=== PATIENT | female | born 1970 | race Caucasian/White ===

== ENCOUNTER 2017-05-15 13:28 | Emergency (ER) | payer SELFPAY ==
[2017-05-15] MEDS ORDERED: cloNIDine 0.1 MG Tab PO ONE (14:28)
[2017-05-15 15:46] VITALS: BP 204/126
--- NOTE | 2017-05-15 15:56 | EDM.PDOC ---
ED HPI GENERAL MEDICAL PROBLEM - General Chief Complaint: Neurological Problem Stated Complaint: AMBULANCE Time Seen by Provider: 05/15/17 14:18 Source of Information: Reports: Patient History Limitations: Reports: No Limitations - History of Present Illness INITIAL COMMENTS - FREE TEXT/NARRATIVE: History of present illness: []EMS brought in patient with a history of her roommate apparently witnessing a seizure. On EMS arrival she was found outside hiding behind a liu and uncooperative. They did not witness any seizure activity. Patient arrived complaining of a severe headache and was hypertensive. 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 She also had a similar episode years ago where she stopped her clonidine suddenly, however patient states that she remembers taking her clonidine last night. Review of systems: As per history of present illness and below otherwise all systems reviewed and negative. Past medical history: As per history of present illness and as reviewed below otherwise noncontributory. Surgical history: As per history of present illness and as reviewed below otherwise noncontributory. Social history: No reported history of drug or alcohol abuse. Family history: As per history of present illness and as reviewed below otherwise noncontributory. Physical exam: General: Well developed, well nourished in mild painful distress, HEENT: Atraumatic, normocephalic, pupils reactive, negative for conjunctival pallor or scleral icterus, mucous membranes moist, throat clear, neck supple, nontender, trachea midline. Lungs: Clear to auscultation, breath sounds equal bilaterally, chest nontender. Heart: S1S2, regular, negative for clicks, rubs, or JVD. Abdomen: Soft, nondistended, nontender. Negative for masses or hepatosplenomegaly. Negative for costovertebral tenderness. Pelvis: Stable nontender. Genitourinary: Deferred. Rectal: Deferred. Extremities: Atraumatic, negative for cords or calf pain. Neurovascular unremarkable. Neuro: Awake, alert, oriented. Cranial nerves II through XII unremarkable. Cerebellum unremarkable. Motor and sensory unremarkable throughout. Exam nonfocal. Diagnostics: []CT head negative, Therapeutics: []clonidine ordered, patient took her own out of her purse. Impression: []Hypertensive emergency. Patient refused to stay and is signing out AGAINST MEDICAL ADVICE. Her blood pressure is 280/125. Patient continues to have a headache. Patient is alert and oriented and understands that there is risk of immediate she leans with this blood pressure. Patient insists on signing out AMA because she is supposed to be moving at this time. []Follow-up with PMD Definitive disposition and diagnosis as appropriate pending reevaluation and review of above. head Pain Score (Numeric/FACES): 8 - Related Data Allergies Allergy/AdvReac Type Severity Reaction Status Date / Time No Known Allergies Allergy Verified 05/15/17 14:20 Home Meds: Home Meds clonazePAM [Klonopin] 0.5 mg PO PRN 11/09/16 [History] cloNIDine [Catapres] 0.4 mg PO TID #90 tablet 11/10/16 [Rx] cloNIDine [Catapres] 0.2 mg PO Q8H #20 tablet 05/15/17 [Rx] Past Medical History HEENT History: Reports: None Cardiovascular History: Reports: Hypertension Respiratory History: Reports: None Gastrointestinal History: Reports: None Genitourinary History: Reports: Other (See Below) Other Genitourinary History: vaginal cancer 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: , 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 (See Below) Other OB/BYN History: Multiple vaginal surgeries for vaginal cancer Musculoskeletal History: Reports: None Neurological History: Reports: Migraines, Seizure Psychiatric History: Reports: Anxiety Endocrine/Metabolic History: Reports: None Hematologic History: Reports: None Immunologic History: Reports: None Oncologic (Cancer) History: Reports: Other (See Below) Other Oncologic History: vaginal ca Dermatologic History: Reports: None - Infectious Disease History Infectious Disease History: Reports: Chicken Pox, Influenza - Past Surgical History GI Surgical History: Reports: Other (See Below) Oncologic Surgical History: Reports: Other (See Below) Social & Family History - Family History Family Medical History: Noncontributory Cardiac: Reports: Hypertension, Other (See Below) Other Cardiac Family History: "cardiac disease" OBGYN: Reports: Neurological: Reports: Dementia Oncologic: Reports: Breast, Pancreatic, Skin Other Oncologic Family History: sister - Tobacco Use Smoking Status *Q: Current Every Day Smoker Years of Tobacco use: 15 Packs/Tins Daily: 1 Used Tobacco, but Quit: No Second Hand Smoke Exposure: Yes - Caffeine Use Caffeine Use: Reports: Coffee, Soda - Recreational Drug Use Recreational Drug Use: Yes Drug Use in Last 12 Months: No ED ROS GENERAL - Review of Systems Review Of Systems: See Below (See history of present illness) - Physical Exam Exam: See Below (See history of present illness) Course - Vital Signs Last Recorded V/S: Last Vital Signs Temp 35.9 C 05/15/17 13:28 Pulse 94 05/15/17 13:28 Resp 20 05/15/17 13:28 BP 204/126 H 05/15/17 15:45 Pulse Ox 100 05/15/17 13:28 - Orders/Labs/Meds Orders: Active Orders 24 hr Category Date Time Status Head wo Cont [CT] Stat Exams 05/15/17 14:28 Taken DRUG SCREEN, URINE [URCHEM] Stat Lab 05/15/17 16:28 Ordered Saline Lock Insert [OM.PC] Stat Oth 05/15/17 14:28 Ordered Labs: Laboratory Tests 05/15/17 Range/Units 14:50 Ethyl Alcohol < 10.0 mg/dL Meds: Medications Discontinued Medications Generic Name Dose Route Start Last Admin Trade Name Ji PRN Reason Stop Dose Admin Clonidine HCl 0.2 mg 05/15/17 14:28 05/15/17 15:45 Catapres PO 05/15/17 14:29 Not Given ONETIME ONE Departure - Departure Time of Disposition: 15:40 Disposition: Against Medical Advice 07 Condition: Good Clinical Impression: Hypertensive urgency - Discharge Information Prescriptions: cloNIDine [Catapres] 0.2 mg PO Q8H #20 tablet Referrals: PCP,None [Primary Care Provider] - Forms: ED Department Discharge Additional Instructions: The following information is given to patients seen in the emergency department who are being discharged to home. This information is to outline your options for follow-up care. We provide all patients seen in our emergency department with a follow-up referral. The need for follow-up, as well as the timing and circumstances, are variable depending upon the specifics of your emergency department visit. If you don't have a primary care physician on staff, we will provide you with a referral. We always advise you to contact your personal physician following an emergency department visit to inform them of the circumstance of the visit and for follow-up with them and/or the need for any referrals to a consulting specialist. The emergency department will also refer you to a specialist when appropriate. This referral assures that you have the opportunity for follow-up care with a specialist. All of these measure are taken in an effort to provide you with optimal care, which includes your follow-up. Under all circumstances we always encourage you to contact your private physician who remains a resource for coordinating your care. When calling for follow-up care, please make the office aware that this follow-up is from your recent emergency room visit. If for any reason you are refused follow-up, please contact the [facility] Emergency Department at and asked to speak to the emergency department charge nurse. Pickup her clonidine prescription and take them as directed [facility] Primary Care [facility] [place] [id number] - My Orders Last 24 Hours: My Active Orders 05/15/17 14:28 Head wo Cont [CT] Stat Saline Lock Insert [OM.PC] Stat 05/15/17 16:28 DRUG SCREEN, URINE [URCHEM] Stat - Assessment/Plan Last 24 Hours: My Active Orders 05/15/17 14:28 Head wo Cont [CT] Stat Saline Lock Insert [OM.PC] Stat 05/15/17 16:28 DRUG SCREEN, URINE [URCHEM] Stat
--- NOTE | 2017-05-17 13:27 | CT ---
EXAM DATE: 05/15/17 PATIENT'S AGE: 46 Patient: VIOLET NIELSEN Facility: [place], [place] Site . Site : 1970 Study: CT Head WO CONT [id number] 3:04:27 PM Ordering Physician: Doroteo Douglas Final Report: Indication: Seizure. Comparison: 09 November 2016. Technique: Noncontrast images foramen magnum to vertex at 3 mm collimation. Findings: No mass, mass effect or midline shift. No intra or extra-axial hemorrhage or abnormal fluid. Stippled coarse calcifications in the central occiput bilaterally, stable from before and potentially choroid plexus related or other chronic dystrophic calcification related. No associated mass effect. Calvarium is intact. Visualized paranasal sinuses, orbits and globes and mastoid air cells and middle ears are well aerated. Impression: No acute intracranial finding. No change for comparison. Dystrophic calcifications bilateral occiput likely choroid plexus related. Please note that all CT scans at this facility use dose modulation, iterative reconstruction, and/or weight-based dosing when appropriate to reduce radiation dose to as low as reasonably achievable. Dictated by Jacob Madsen MD @ May 15 2017 3:08PM (Electronic Signature) Report Signed by Proxy. MANNIE
== END 2017-05-15 15:46 | disposition left against medical advice (07) ==
LOC: MW.ED 13:28
DX: I16.0 Hypertensive urgency (principal); G43.909 Migraine, unspecified, not intractable, without status migrainosus; F17.210 Nicotine dependence, cigarettes, uncomplicated
CPT/HCPCS: 36415; 70450; 99285; G0480; 99282

== ENCOUNTER 2017-07-05 10:25 | Emergency (ER) | payer SELFPAY ==
[2017-07-05] MEDS ORDERED: Sodium Chloride 0.9% 10 ML Syringe FLUSH PRN (10:27)
[2017-07-05] MEDS ORDERED: Sodium Chloride 0.9% 1,000 ML IV ONE (10:27)
[2017-07-05] MEDS ORDERED: Sodium Chloride 0.9% 2.5 ML Syringe FLUSH PRN (10:27)
--- NOTE | 2017-07-05 10:34 | EDM.PDOC ---
ED HPI GENERAL MEDICAL PROBLEM - General Stated Complaint: AMBULANCE Time Seen by Provider: 07/05/17 10:28 Source of Information: Reports: Patient History Limitations: Reports: No Limitations - History of Present Illness INITIAL COMMENTS - FREE TEXT/NARRATIVE: HISTORY AND PHYSICAL: History of present illness: Patient is a 46-year-old female that was brought to the emergency room via EMS after a coworker reported that she took too many of her clonidine. 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 She states she started having tunnel vision and having difficulty seeing which is common with her high blood pressure. Over the course of the next 3 hours she took 6 tablets of her clonidine dose. An employee noticed her speech is becoming that appeared to be drowsy. Upon arrival patient is alert and oriented and speaking in full sentences but does have thickened speech. She denies any drug use or alcohol use. Denies any chest pain, shortness of breath, headache, nausea, vomiting or diarrhea. Patient reports that her main reason for being seen right now due to the high blood pressure concern and feeling slightly drowsy from her medication use. Patient has a past medical history of anxiety, hypertension, and hypertension urgency. Review of systems: As per history of present illness and below otherwise all systems reviewed and negative. Past medical history: As per history of present illness and as reviewed below otherwise noncontributory. Surgical history: As per history of present illness and as reviewed below otherwise noncontributory. Social history: No reported history of drug or alcohol abuse. Family history: As per history of present illness and as reviewed below otherwise noncontributory. Physical exam: General: Nontoxic, well-developed, well-nourished 46-year-old female. Able to speak in full sentences without shortness of breath. Thickened speech is noted. HEENT: Atraumatic, normocephalic, pupils reactive, negative for conjunctival pallor or scleral icterus, mucous membranes moist, throat clear, neck supple, nontender, trachea midline. Lungs: Clear to auscultation, breath sounds equal bilaterally, chest nontender. Heart: S1S2, regular rate and rhythm. Abdomen: Soft, nondistended, nontender. Negative for masses or hepatosplenomegaly. Negative for costovertebral tenderness. Pelvis: Stable nontender. Genitourinary: Deferred. Rectal: Deferred. Extremities: Atraumatic, negative for cords or calf pain. Neurovascular unremarkable. Neuro: Awake, alert, oriented. Cranial nerves II through XII unremarkable. Cerebellum unremarkable. Motor and sensory unremarkable throughout. Exam nonfocal. 1035- upon completion of triage and providers physical assessment and orders were placed, patient reports she wants to leave AGAINST MEDICAL ADVICE. Patient is awake, alert and oriented and able to make competent decisions. Patient is aware of my concerns and declines to stay for future evaluation. Reports that she needs to get back to work and will follow-up with Dr. Carpio at [facility]. Patient signed AMA paperwork. 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: , 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 (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) Other OB/BYN History: Multiple vaginal surgeries for vaginal cancer Musculoskeletal History: Reports: None Neurological History: Reports: Migraines, Seizure Psychiatric History: Reports: Anxiety Endocrine/Metabolic History: Reports: None Hematologic History: Reports: None Immunologic History: Reports: None Oncologic (Cancer) History: Reports: Other (See Below) Other Oncologic History: vaginal ca Dermatologic History: Reports: None - Infectious Disease History Infectious Disease History: Reports: Chicken Pox, Influenza - Past Surgical History GI Surgical History: Reports: Other (See Below) Oncologic Surgical History: Reports: Other (See Below) Social & Family History - Family History Family Medical History: Noncontributory Cardiac: Reports: Hypertension, Other (See Below) Other Cardiac Family History: "cardiac disease" OBGYN: Reports: Neurological: Reports: Dementia Oncologic: Reports: Breast, Pancreatic, Skin Other Oncologic Family History: sister - Tobacco Use Smoking Status *Q: Current Every Day Smoker Years of Tobacco use: 15 Packs/Tins Daily: 1 Used Tobacco, but Quit: No Second Hand Smoke Exposure: Yes - Caffeine Use Caffeine Use: Reports: Coffee, Soda - Recreational Drug Use Recreational Drug Use: Yes Drug Use in Last 12 Months: No ED ROS GENERAL - Review of Systems Review Of Systems: ROS reveals no pertinent complaints other than HPI. ED EXAM, GENERAL - Physical Exam Exam: See Below (See dictation) Course - Orders/Labs/Meds Orders: Active Orders 24 hr Category Date Time Status Cardiac Monitoring [RC] . DIRECTED Care 07/05/17 10:27 Active EKG Documentation Completion [RC] STAT Care 07/05/17 10:27 Active CBC WITH AUTO DIFF [HEME] Stat Lab 07/05/17 10:27 Ordered COMPREHENSIVE METABOLIC PN,CMP [CHEM] Stat Lab 07/05/17 10:27 Ordered DRUG SCREEN, URINE [URCHEM] Stat Lab 07/05/17 10:34 Uncollected TROPONIN I [CHEM] Stat Lab 07/05/17 10:27 Ordered UA W/MICROSCOPIC [URIN] Stat Lab 07/05/17 10:34 Uncollected Sodium Chloride 0.9% [Normal Saline] 1,000 ml Med 07/05/17 10:27 Active IV STAT Sodium Chloride 0.9% [Saline Flush] Med 07/05/17 10:27 Active 10 ml FLUSH ASDIRECTED PRN Sodium Chloride 0.9% [Saline Flush] Med 07/05/17 10:27 Active 2.5 ml FLUSH ASDIRECTED PRN Saline Lock Insert [OM.PC] Stat Oth 07/05/17 10:27 Ordered Medication Orders Sodium Chloride (Normal Saline) 1,000 mls @ 999 mls/hr IV STAT ONE Stop: 07/05/17 11:27 Sodium Chloride (Saline Flush) 10 ml FLUSH ASDIRECTED PRN PRN Reason: Keep Vein Open Sodium Chloride (Saline Flush) 2.5 ml FLUSH ASDIRECTED PRN PRN Reason: Keep Vein Open Meds: Medications Generic Name Dose Route Start Last Admin Trade Name Freq PRN Reason Stop Dose Admin Sodium Chloride 1,000 mls @ 999 mls/hr 07/05/17 10:27 Normal Saline IV 07/05/17 11:27 STAT ONE Sodium Chloride 10 ml 07/05/17 10:27 Saline Flush FLUSH ASDIRECTED PRN Keep Vein Open Sodium Chloride 2.5 ml 07/05/17 10:27 Saline Flush FLUSH ASDIRECTED PRN Keep Vein Open Departure - Departure Time of Disposition: 10:40 Disposition: Against Medical Advice 07 Clinical Impression: Encounter for medical screening examination - Discharge Information Forms: Refusal of Care AMA - My Orders Last 24 Hours: My Active Orders 07/05/17 10:27 Cardiac Monitoring [RC] . DIRECTED EKG Documentation Completion [RC] STAT CBC WITH AUTO DIFF [HEME] Stat COMPREHENSIVE METABOLIC PN,CMP [CHEM] Stat TROPONIN I [CHEM] Stat Sodium Chloride 0.9% [Normal Saline] 1,000 ml IV STAT Sodium Chloride 0.9% [Saline Flush] 10 ml FLUSH ASDIRECTED PRN Sodium Chloride 0.9% [Saline Flush] 2.5 ml FLUSH ASDIRECTED PRN Saline Lock Insert [OM.PC] Stat 07/05/17 10:34 DRUG SCREEN, URINE [URCHEM] Stat UA W/MICROSCOPIC [URIN] Stat - Assessment/Plan Last 24 Hours: My Active Orders 07/05/17 10:27 Cardiac Monitoring [RC] . DIRECTED EKG Documentation Completion [RC] STAT CBC WITH AUTO DIFF [HEME] Stat COMPREHENSIVE METABOLIC PN,CMP [CHEM] Stat TROPONIN I [CHEM] Stat Sodium Chloride 0.9% [Normal Saline] 1,000 ml IV STAT Sodium Chloride 0.9% [Saline Flush] 10 ml FLUSH ASDIRECTED PRN Sodium Chloride 0.9% [Saline Flush] 2.5 ml FLUSH ASDIRECTED PRN Saline Lock Insert [OM.PC] Stat 07/05/17 10:34 DRUG SCREEN, URINE [URCHEM] Stat UA W/MICROSCOPIC [URIN] Stat
[2017-07-05 10:47] VITALS: BP 156/95
== END 2017-07-05 10:40 | disposition left against medical advice (07) ==
LOC: MW.ED 10:25
DX: I10 Essential (primary) hypertension (principal); F41.9 Anxiety disorder, unspecified; F17.210 Nicotine dependence, cigarettes, uncomplicated
CPT/HCPCS: 99283; 99284

== ENCOUNTER 2018-01-22 21:06 | Emergency (ER) | payer SELFPAY ==
--- NOTE | 2018-01-22 21:20 | EDM.PDOC ---
ED HPI GENERAL MEDICAL PROBLEM - General Chief Complaint: Genitourinary Problem Stated Complaint: POSSIBLE UTI Time Seen by Provider: 01/22/18 21:16 - History of Present Illness INITIAL COMMENTS - FREE TEXT/NARRATIVE: HISTORY AND PHYSICAL: History of present illness: Patient 47-year-old white female presents with concern of dysuria with blood in her urine frequency and hesitancy consistent with prior urinary tract infections she denies fever chills nausea vomiting back pain or other concern Review of systems: As per history of present illness and below otherwise all systems reviewed and negative. Past medical history: As per history of present illness and as reviewed below otherwise noncontributory. Surgical history: As per history of present illness and as reviewed below otherwise noncontributory. Social history: No reported history of drug or alcohol abuse. Family history: As per history of present illness and as reviewed below otherwise noncontributory. Physical exam: HEENT: Atraumatic, normocephalic, pupils reactive, negative for conjunctival pallor or scleral icterus, mucous membranes moist, throat clear, neck supple, nontender, trachea midline. Lungs: Clear to auscultation, breath sounds equal bilaterally, chest nontender. Heart: S1S2, regular, negative for clicks, rubs, or JVD. Abdomen: Soft, nondistended, nontender. Negative for masses or hepatosplenomegaly. Negative for costovertebral tenderness. Pelvis: Stable nontender. Genitourinary: Deferred. Rectal: Deferred. Extremities: Atraumatic, negative for cords or calf pain. Neurovascular unremarkable. Neuro: Awake, alert, oriented. Cranial nerves II through XII unremarkable. Cerebellum unremarkable. Motor and sensory unremarkable throughout. Exam nonfocal. Diagnostics: Patient declined all treatment laboratory evaluation with the exception of UA and urine culture Therapeutics: Patient declined Impression: 1 UTI #2 history of hypertension with medical noncompliance Definitive disposition and diagnosis as appropriate pending reevaluation and review of above. painful urination Pain Score (Numeric/FACES): 6 - Related Data Allergies Allergy/AdvReac Type Severity Reaction Status Date / Time No Known Allergies Allergy Verified 01/22/18 21:10 Home Meds: Home Meds clonazePAM [Klonopin] 0.5 mg PO ASDIRECTED PRN 11/09/16 [History] cloNIDine [Catapres] 0.2 mg PO Q8H #20 tablet 05/15/17 [Rx] Past Medical History HEENT History: Reports: None Cardiovascular History: Reports: Hypertension Respiratory History: Reports: None Gastrointestinal History: Reports: None Genitourinary History: Reports: UTI, Recurrent Other Genitourinary History: HPV [employer] History: Reports: , Other (See Below) Other OB/BYN History: Multiple vaginal surgeries for vaginal cancer Musculoskeletal History: Reports: None Neurological History: Reports: Migraines, Seizure Psychiatric History: Reports: Anxiety Endocrine/Metabolic History: Reports: None Hematologic History: Reports: None Immunologic History: Reports: None Oncologic (Cancer) History: Reports: Other (See Below) Other Oncologic History: vaginal ca Dermatologic History: Reports: None - Infectious Disease History Infectious Disease History: Reports: Chicken Pox, Human Papilloma Virus (HPV) - Past Surgical History Head Surgeries/Procedures: Reports: None GI Surgical History: Reports: Other (See Below) Oncologic Surgical History: Reports: Other (See Below) Social & Family History - Family History Family Medical History: Noncontributory Cardiac: Reports: Hypertension, Other (See Below) Other Cardiac Family History: "cardiac disease" OBGYN: Reports: Neurological: Reports: Dementia Oncologic: Reports: Breast, Pancreatic, Skin Other Oncologic Family History: sister - Tobacco Use Smoking Status *Q: Current Every Day Smoker Years of Tobacco use: 20 Packs/Tins Daily: 1 Used Tobacco, but Quit: No Second Hand Smoke Exposure: Yes - Caffeine Use Caffeine Use: Reports: Soda - Recreational Drug Use Recreational Drug Use: No Drug Use in Last 12 Months: No ED ROS GENERAL - Review of Systems Review Of Systems: ROS reveals no pertinent complaints other than HPI. ED EXAM, GENERAL - Physical Exam Exam: See Below (See dictation) Course - Vital Signs Text/Narrative:: I discussed with patient at length her elevated blood pressure and the need for medical compliance she understands risks and benefits she declines any diagnostics or further treatment she states she will take her medicine as prescribed and follow-up with her doctor closely and return as needed as discussed. Last Recorded V/S: Last Vital Signs Temp 36.3 C 01/22/18 21:10 Pulse 98 01/22/18 21:10 Resp 18 01/22/18 21:10 BP 208/112 H 01/22/18 21:37 Pulse Ox 97 01/22/18 21:10 - Orders/Labs/Meds Orders: Active Orders 24 hr Category Date Time Status EKG Documentation Completion [RC] STAT Care 01/22/18 21:21 Active Chest 1V Frontal [CR] Stat Exams 01/22/18 21:21 Ordered CULTURE URINE [RM] Stat Lab 01/22/18 21:15 Received UA W/MICROSCOPIC [URIN] Stat Lab 01/22/18 21:15 Ordered Sodium Chloride 0.9% [Saline Flush] Med 01/22/18 21:22 Active 10 ml FLUSH ASDIRECTED PRN Sodium Chloride 0.9% [Saline Flush] Med 01/22/18 21:22 Active 2.5 ml FLUSH ASDIRECTED PRN Saline Lock Insert [OM.PC] Stat Oth 01/22/18 21:21 Ordered Medication Orders Sodium Chloride (Saline Flush) 10 ml FLUSH ASDIRECTED PRN PRN Reason: Keep Vein Open Sodium Chloride (Saline Flush) 2.5 ml FLUSH ASDIRECTED PRN PRN Reason: Keep Vein Open Labs: Laboratory Tests 01/22/18 Range/Units 21:15 Urine Color ORANGE Urine Appearance SLT CLOUDY Urine pH 5.0 (5.0-8.0) Ur Specific [place] >= 1.030 (1.001-1.035) Urine Protein 100 (NEGATIVE) mg/dL Urine Glucose (UA) 100 H (NEGATIVE) mg/dL Urine Ketones NEGATIVE (NEGATIVE) mg/dL Urine Occult Blood TRACE-LYSED (NEGATIVE) Urine Nitrite POSITIVE H (NEGATIVE) Urine Bilirubin SMALL H (NEGATIVE) Urine Ictotest POSITIVE Urine Urobilinogen 4.0 H (<2.0) EU/dL Ur Leukocyte Esterase MODERATE (NEGATIVE) Urine RBC 1-2 (0-2/HPF) Urine WBC TO NUMEROUS TO COUNT H (0-5/HPF) Ur Epithelial Cells FEW (NONE-FEW) Urine Bacteria FEW (NEGATIVE) Meds: Medications Generic Name Dose Route Start Last Admin Trade Name Freq PRN Reason Stop Dose Admin Sodium Chloride 10 ml 01/22/18 21:22 Saline Flush FLUSH ASDIRECTED PRN Keep Vein Open Sodium Chloride 2.5 ml 01/22/18 21:22 Saline Flush FLUSH ASDIRECTED PRN Keep Vein Open Discontinued Medications Generic Name Dose Route Start Last Admin Trade Name Freq PRN Reason Stop Dose Admin Hydralazine HCl 10 mg 01/22/18 21:22 Apresoline IVPUSH 01/22/18 21:23 ONETIME ONE Departure - Departure Time of Disposition: 21:20 Disposition: Home, Self-Care 01 Clinical Impression: UTI (urinary tract infection), Hypertension, Medical non-compliance - Discharge Information Referrals: Ronny Sánchez MD [Primary Care Provider] - Forms: ED Department Discharge Additional Instructions: The following information is given to patients seen in the emergency department who are being discharged to home. This information is to outline your options for follow-up care. We provide all patients seen in our emergency department with a follow-up referral. The need for follow-up, as well as the timing and circumstances, are variable depending upon the specifics of your emergency department visit. If you don't have a primary care physician on staff, we will provide you with a referral. We always advise you to contact your personal physician following an emergency department visit to inform them of the circumstance of the visit and for follow-up with them and/or the need for any referrals to a consulting specialist. The emergency department will also refer you to a specialist when appropriate. This referral assures that you have the opportunity for followup care with a specialist. All of these measure are taken in an effort to provide you with optimal care, which includes your followup. Under all circumstances we always encourage you to contact your private physician who remains a resource for coordinating your care. When calling for followup care, please make the office aware that this follow-up is from your recent emergency room visit. If for any reason you are refused follow-up, please contact the [facility] emergency department at and asked to speak to the emergency department charge nurse. Continue home medications Cipro and Pyridium as prescribed follow-up primary medical doctor WENDY and return as needed as discussed - My Orders Last 24 Hours: My Active Orders 01/22/18 21:15 CULTURE URINE [RM] Stat UA W/MICROSCOPIC [URIN] Stat 01/22/18 21:21 EKG Documentation Completion [RC] STAT Chest 1V Frontal [CR] Stat Saline Lock Insert [OM.PC] Stat 01/22/18 21:22 Sodium Chloride 0.9% [Saline Flush] 10 ml FLUSH ASDIRECTED PRN Sodium Chloride 0.9% [Saline Flush] 2.5 ml FLUSH ASDIRECTED PRN - Assessment/Plan Last 24 Hours: My Active Orders 01/22/18 21:15 CULTURE URINE [RM] Stat UA W/MICROSCOPIC [URIN] Stat 01/22/18 21:21 EKG Documentation Completion [RC] STAT Chest 1V Frontal [CR] Stat Saline Lock Insert [OM.PC] Stat 01/22/18 21:22 Sodium Chloride 0.9% [Saline Flush] 10 ml FLUSH ASDIRECTED PRN Sodium Chloride 0.9% [Saline Flush] 2.5 ml FLUSH ASDIRECTED PRN
[2018-01-22] MEDS ORDERED: Sodium Chloride 0.9% 10 ML Syringe FLUSH PRN (21:22)
[2018-01-22] MEDS ORDERED: Sodium Chloride 0.9% 2.5 ML Syringe FLUSH PRN (21:22)
[2018-01-22] MEDS ORDERED: hydrALAZINE 20 MG/ML SDV IVPUSH ONE (21:22)
[2018-01-22 21:38] VITALS: BP 208/112
== END 2018-01-22 21:45 | disposition home or self-care (01) ==
LOC: MW.ED 21:06
DX: N39.0 Urinary tract infection, site not specified (principal); I10 Essential (primary) hypertension; Z91.14 Patient's other noncompliance with medication regimen; F17.210 Nicotine dependence, cigarettes, uncomplicated; Z79.899 Other long term (current) drug therapy; Z87.440 Personal history of urinary (tract) infections
CPT/HCPCS: 81001; 87086; 99283

== ENCOUNTER 2018-07-07 15:04 | Emergency (ER) | payer SELFPAY ==
[2018-07-07] MEDS ORDERED: Sodium Chloride 0.9% 2.5 ML Syringe FLUSH PRN (15:08)
[2018-07-07] MEDS ORDERED: Sodium Chloride 0.9% 1,000 ML IV ONE ×2 (15:08→17:06)
[2018-07-07] MEDS ORDERED: Aspirin 81 MG Tab.Chew PO ONE (15:08)
[2018-07-07] MEDS ORDERED: Famotidine 20 MG/2 ML SDV IVPUSH ONE (15:08)
[2018-07-07] MEDS ORDERED: Sodium Chloride 0.9% 10 ML Syringe FLUSH PRN (15:08)
--- NOTE | 2018-07-07 15:18 | EDM.PDOC ---
ED HPI GENERAL MEDICAL PROBLEM - General Chief Complaint: Chest Pain Stated Complaint: PT SPOKE TO NURSE Time Seen by Provider: 07/07/18 15:15 Source of Information: Reports: Patient History Limitations: Reports: No Limitations - History of Present Illness INITIAL COMMENTS - FREE TEXT/NARRATIVE: HISTORY AND PHYSICAL: [47-year-old female presenting from the [facility] with hypertensive crisis History of Present Illness: []Patient has history of drug use Has been working at [employer] to smoke/menthols The clinic called this afternoon and had spoken with Dr. Sadler blood pressure to 214/132 heart rate of 80 respiratory rate 20 c/o tightness On admission to the emergency department blood pressure is 184/114 Review of Systems: As per history of present illness and below otherwise all systems reviewed and negative. Past medical history: As per history of present illness and as reviewed below otherwise noncontributory. Surgical history: As per history of present illness and as reviewed below otherwise noncontributory. Social history: No reported history of drug or alcohol abuse. Family history: As per history of present illness and as reviewed below otherwise noncontributory. Physical exam: HEENT: Atraumatic, normocehpalic, pupils reactive, negative for conjunctival pallor or scleral icterus, mucous membranes moist, throat clear, neck supple, nontender, trachea midline. Lungs: Clear to auscultation, breath sounds equal bilaterally, chest non tender. Heart: S1S2, regular, negative for clicks, rubs, or JVD. Abdomen: Soft, nondistended, nontender. Negative for masses or hepatossplenmegaly. Negative for costovertebral tenderness. Pelvis: Stable nontender. Genitourinary: Deferred. Rectal: Deferred Extremities: Atraumatic, negative for cords or calf pain. Neurovascular unremarkable. Neuro: Awake, alert, oriented. Cranial nerves II through XII unremarkable. Cerebellum unremarkable. Motor and sensory unremarkable throughout. Exam nonfocal. Discussed with the lab results with patient and that her blood pressure will be elevated as long as she continues to take cocaine. She does have a small infiltrate, pneumonia. Have discussed this patient with the ER physician Dr. Hylton in ER who would accept the patient however now a patient is signing out AMA refuses any transportation. Have discussed at length the concerns I have are unsafe for her to drive she needs to have a center medical and lab director and again she refuses transportation. She states her boyfriend will drive her to [employer]. Diagnostics: []CBC CMP troponin chest x-ray repeat EKG Therapeutics: []aspirin Impression: Elevated troponin/no change on EKG []#1 pneumonia #2 hypertension #3 drug abuse Plan: []Discharged AMA Definitive disposition and diagnosis as appropriate pending reevaluation and review of above. Onset: Today, Sudden Duration: Hour(s):, Getting Worse Location: Reports: Chest Quality: Reports: Ache Severity: Mild Improves with: Reports: None Worsens with: Reports: None Chest Pain Score (Numeric/FACES): 7 - Related Data Allergies Allergy/AdvReac Type Severity Reaction Status Date / Time No Known Allergies Allergy Verified 07/07/18 15:11 Home Meds: Home Meds cloNIDine [Catapres] 0.2 mg PO Q8H #20 tablet 05/15/17 [Rx] Past Medical History HEENT History: Reports: None Cardiovascular History: Reports: Hypertension Respiratory History: Reports: None Gastrointestinal History: Reports: None Genitourinary History: Reports: UTI, Recurrent Other Genitourinary History: HPV [employer]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: , Other (See Below) 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: Multiple vaginal surgeries for vaginal cancer Musculoskeletal History: Reports: None Neurological History: Reports: Migraines, Seizure Psychiatric History: Reports: Anxiety Endocrine/Metabolic History: Reports: None Hematologic History: Reports: None Immunologic History: Reports: None Oncologic (Cancer) History: Reports: Other (See Below) Other Oncologic History: vaginal ca Dermatologic History: Reports: None - Infectious Disease History Infectious Disease History: Reports: Chicken Pox, Human Papilloma Virus (HPV) - Past Surgical History Head Surgeries/Procedures: Reports: None GI Surgical History: Reports: Other (See Below) Oncologic Surgical History: Reports: Other (See Below) Social & Family History - Family History Family Medical History: Noncontributory Cardiac: Reports: Hypertension, Other (See Below) Other Cardiac Family History: "cardiac disease" OBGYN: Reports: Neurological: Reports: Dementia Oncologic: Reports: Breast, Pancreatic, Skin Other Oncologic Family History: sister - Caffeine Use Caffeine Use: Reports: Soda ED ROS GENERAL - Review of Systems Review Of Systems: ROS reveals no pertinent complaints other than HPI. ED EXAM, GENERAL - Physical Exam Exam: See Below (see dictation) EKG INTERPRETATION EKG Date: 07/07/18 Rhythm: NSR Comparison: No Change Course - Vital Signs Last Recorded V/S: Last Vital Signs Temp 37.2 C 07/07/18 15:12 Pulse 75 07/07/18 16:25 Resp 18 07/07/18 15:12 BP 162/108 H 07/07/18 16:25 Pulse Ox 99 07/07/18 16:16 - Orders/Labs/Meds Orders: Active Orders 24 hr Category Date Time Status Cardiac Monitoring [RC] . DIRECTED Care 07/07/18 15:08 Active EKG Documentation Completion [RC] STAT Care 07/07/18 15:08 Active EKG Documentation Completion [RC] STAT Care 07/07/18 17:03 Active Oxygen Therapy [RC] ASDIRECTED Care 07/07/18 15:08 Active Pulse Oximetry [RC] ASDIRECTED Care 07/07/18 15:08 Active RT Aerosol Therapy [RC] ASDIRECTED Care 07/07/18 16:05 Active Chest 1V Frontal [CR] Stat Exams 07/07/18 15:08 Taken HCG QUALITATIVE,URINE [URCHEM] Stat Lab 07/07/18 16:08 Received Sodium Chloride 0.9% [Normal Saline] 1,000 ml Med 07/07/18 17:06 Active IV .Bolus Sodium Chloride 0.9% [Saline Flush] Med 07/07/18 15:08 Active 10 ml FLUSH ASDIRECTED PRN Sodium Chloride 0.9% [Saline Flush] Med 07/07/18 15:08 Active 2.5 ml FLUSH ASDIRECTED PRN Saline Lock Insert [OM.PC] Stat Oth 07/07/18 15:08 Ordered Medication Orders Sodium Chloride (Normal Saline) 1,000 mls @ 200 mls/hr IV .Bolus ONE Stop: 07/07/18 22:05 Sodium Chloride (Saline Flush) 10 ml FLUSH ASDIRECTED PRN PRN Reason: Keep Vein Open Last Admin: 07/07/18 15:26 Dose: 10 ml Sodium Chloride (Saline Flush) 2.5 ml FLUSH ASDIRECTED PRN PRN Reason: Keep Vein Open Last Admin: 07/07/18 15:26 Dose: 2.5 ml Labs: Laboratory Tests 09/13/18 09/13/18 09/13/18 Range/Units 15:20 15:20 15:20 WBC 8.83 (4.0-11.0) K/uL RBC 4.48 (4.30-5.90) M/uL Hgb 14.2 (12.0-16.0) g/dL Hct 42.8 (36.0-46.0) % MCV 95.5 (80.0-98.0) fL MCH 31.7 (27.0-32.0) pg MCHC 33.2 (31.0-37.0) g/dL RDW Std Deviation 50.9 (28.0-62.0) fl RDW Coeff of Jonelle 15 (11.0-15.0) % Plt Count 209 (150-400) K/uL MPV 10.60 (7.40-12.00) fL Neut % (Auto) 68.0 (48.0-80.0) % Lymph % (Auto) 22.2 (16.0-40.0) % Barton % (Auto) 6.6 (0.0-15.0) % Eos % (Auto) 2.9 (0.0-7.0) % Baso % (Auto) 0.3 (0.0-1.5) % Neut # (Auto) 6.0 H (1.4-5.7) K/uL Lymph # (Auto) 2.0 (0.6-2.4) K/uL Barton # (Auto) 0.6 (0.0-0.8) K/uL Eos # (Auto) 0.3 (0.0-0.7) K/uL Baso # (Auto) 0.0 (0.0-0.1) K/uL Nucleated RBC % 0.0 /100WBC Nucleated RBCs # 0 K/uL INR 0.92 Sodium 142 (136-145) mmol/L Potassium 3.8 (3.5-5.1) mmol/L Chloride 107 (98-107) mmol/L Carbon Dioxide 21.1 (21.0-32.0) mmol/L BUN 21 H (7.0-18.0) mg/dL Creatinine 1.4 H (0.6-1.0) mg/dL Est Cr Clr Drug Dosing 40.13 mL/min Estimated GFR (MDRD) 40.7 ml/min Glucose 99 (74-106) mg/dL Calcium 8.8 (8.5-10.1) mg/dL Total Bilirubin 0.2 (0.2-1.0) mg/dL AST 29 (15-37) IU/L ALT 26 (14-63) IU/L Alkaline Phosphatase 97 (46-116) U/L Troponin I 0.119 H* (0.000-0.056) ng/mL Total Protein 8.0 (6.4-8.2) g/dL Albumin 3.7 (3.4-5.0) g/dL Globulin 4.3 H (2.0-3.5) g/dL Albumin/Globulin Ratio 0.9 L (1.3-2.8) Amylase 84 (25-115) U/L Lipase 217 (73-393) U/L Urine Color Urine Appearance Urine pH (5.0-8.0) Ur Specific [place] (1.001-1.035) Urine Protein (NEGATIVE) mg/dL Urine Glucose (UA) (NEGATIVE) mg/dL Urine Ketones (NEGATIVE) mg/dL Urine Occult Blood (NEGATIVE) Urine Nitrite (NEGATIVE) Urine Bilirubin (NEGATIVE) Urine Urobilinogen (<2.0) EU/dL Ur Leukocyte Esterase (NEGATIVE) Urine RBC (0-2/HPF) Urine WBC (0-5/HPF) Ur Epithelial Cells (NONE-FEW) Amorphous Sediment (NEGATIVE) Urine Bacteria (NEGATIVE) Urine Opiates Screen (NEGATIVE) Ur Oxycodone Screen (NEGATIVE) Urine Methadone Screen (NEGATIVE) Ur Barbiturates Screen (NEGATIVE) Ur Phencyclidine Scrn (NEGATIVE) Ur Amphetamine Screen (NEGATIVE) U Methamphetamines Scrn (NEGATIVE) U Benzodiazepines Scrn (NEGATIVE) U Cocaine Metab Screen (NEGATIVE) U Marijuana (THC) Screen (NEGATIVE) 07/07/18 07/07/18 Range/Units 16:08 16:08 WBC (4.0-11.0) K/uL RBC (4.30-5.90) M/uL Hgb (12.0-16.0) g/dL Hct (36.0-46.0) % MCV (80.0-98.0) fL MCH (27.0-32.0) pg MCHC (31.0-37.0) g/dL RDW Std Deviation (28.0-62.0) fl RDW Coeff of Jonelle (11.0-15.0) % Plt Count (150-400) K/uL MPV (7.40-12.00) fL Neut % (Auto) (48.0-80.0) % Lymph % (Auto) (16.0-40.0) % Barton % (Auto) (0.0-15.0) % Eos % (Auto) (0.0-7.0) % Baso % (Auto) (0.0-1.5) % Neut # (Auto) (1.4-5.7) K/uL Lymph # (Auto) (0.6-2.4) K/uL Barton # (Auto) (0.0-0.8) K/uL Eos # (Auto) (0.0-0.7) K/uL Baso # (Auto) (0.0-0.1) K/uL Nucleated RBC % /100WBC Nucleated RBCs # K/uL INR Sodium (136-145) mmol/L Potassium (3.5-5.1) mmol/L Chloride (98-107) mmol/L Carbon Dioxide (21.0-32.0) mmol/L BUN (7.0-18.0) mg/dL Creatinine (0.6-1.0) mg/dL Est Cr Clr Drug Dosing mL/min Estimated GFR (MDRD) ml/min Glucose (74-106) mg/dL Calcium (8.5-10.1) mg/dL Total Bilirubin (0.2-1.0) mg/dL AST (15-37) IU/L ALT (14-63) IU/L Alkaline Phosphatase (46-116) U/L Troponin I (0.000-0.056) ng/mL Total Protein (6.4-8.2) g/dL Albumin (3.4-5.0) g/dL Globulin (2.0-3.5) g/dL Albumin/Globulin Ratio (1.3-2.8) Amylase (25-115) U/L Lipase (73-393) U/L Urine Color YELLOW Urine Appearance CLEAR Urine pH 6.0 (5.0-8.0) Ur Specific [place] 1.020 (1.001-1.035) Urine Protein NEGATIVE (NEGATIVE) mg/dL Urine Glucose (UA) NEGATIVE (NEGATIVE) mg/dL Urine Ketones NEGATIVE (NEGATIVE) mg/dL Urine Occult Blood NEGATIVE (NEGATIVE) Urine Nitrite NEGATIVE (NEGATIVE) Urine Bilirubin NEGATIVE (NEGATIVE) Urine Urobilinogen 0.2 (<2.0) EU/dL Ur Leukocyte Esterase NEGATIVE (NEGATIVE) Urine RBC NONE SEEN (0-2/HPF) Urine WBC 0-2 (0-5/HPF) Ur Epithelial Cells RARE (NONE-FEW) Amorphous Sediment RARE (NEGATIVE) Urine Bacteria RARE (NEGATIVE) Urine Opiates Screen NEGATIVE (NEGATIVE) Ur Oxycodone Screen NEGATIVE (NEGATIVE) Urine Methadone Screen NEGATIVE (NEGATIVE) Ur Barbiturates Screen NEGATIVE (NEGATIVE) Ur Phencyclidine Scrn NEGATIVE (NEGATIVE) Ur Amphetamine Screen NEGATIVE (NEGATIVE) U Methamphetamines Scrn NEGATIVE (NEGATIVE) U Benzodiazepines Scrn NEGATIVE (NEGATIVE) U Cocaine Metab Screen POSITIVE (NEGATIVE) U Marijuana (THC) Screen NEGATIVE (NEGATIVE) Meds: Medications Generic Name Dose Route Start Last Admin Trade Name Freq PRN Reason Stop Dose Admin Sodium Chloride 1,000 mls @ 200 mls/hr 07/07/18 17:06 Normal Saline IV 07/07/18 22:05 .Bolus ONE Sodium Chloride 10 ml 07/07/18 15:08 07/07/18 15:26 Saline Flush FLUSH 10 ml ASDIRECTED PRN Administration Keep Vein Open Sodium Chloride 2.5 ml 07/07/18 15:08 07/07/18 15:26 Saline Flush FLUSH 2.5 ml ASDIRECTED PRN Administration Keep Vein Open Discontinued Medications Generic Name Dose Route Start Last Admin Trade Name Freq PRN Reason Stop Dose Admin Albuterol/Ipratropium 3 ml 07/07/18 16:04 07/07/18 16:16 Duoneb 3.0-0.5 Mg/3 Ml NEB 07/07/18 16:05 3 ml ONETIME ONE Administration Aspirin 324 mg 07/07/18 15:08 07/07/18 15:25 Aspirin PO 07/07/18 15:09 324 mg ONETIME ONE Administration Clonidine HCl 0.2 mg 07/07/18 15:19 07/07/18 15:32 Catapres PO 07/07/18 15:20 Not Given ONETIME ONE Famotidine 20 mg 07/07/18 15:08 07/07/18 15:26 Pepcid IVPUSH 07/07/18 15:09 20 mg ONETIME ONE Administration Sodium Chloride 1,000 mls @ 999 mls/hr 07/07/18 15:08 07/07/18 15:25 Normal Saline IV 07/07/18 16:08 999 mls/hr BOLUS ONE Administration Nitroglycerin 0.4 mg 07/07/18 15:46 07/07/18 15:53 Nitrostat SL 07/07/18 15:47 0.4 mg ONETIME ONE Administration Nitroglycerin 0.4 mg 07/07/18 16:05 07/07/18 16:07 Nitrostat SL 07/07/18 16:06 0.4 mg ONETIME ONE Administration Nitroglycerin 1 gm 07/07/18 16:26 07/07/18 16:42 Nitro-Bid 2% TOP 07/07/18 16:27 1 gm ONETIME ONE Administration Departure - Departure Time of Disposition: 17:18 Disposition: Against Medical Advice 07 Condition: Fair Clinical Impression: Atypical chest pain, Elevated troponin, Poor hypertension control, Drug use Instructions: Nonspecific Chest Pain, Hypertension, [id number] Referrals: PCP,None [Primary Care Provider] - Forms: ED Department Discharge - My Orders Last 24 Hours: My Active Orders 07/07/18 15:08 Cardiac Monitoring [RC] . DIRECTED EKG Documentation Completion [RC] STAT Oxygen Therapy [RC] ASDIRECTED Pulse Oximetry [RC] ASDIRECTED Chest 1V Frontal [CR] Stat Sodium Chloride 0.9% [Saline Flush] 10 ml FLUSH ASDIRECTED PRN Sodium Chloride 0.9% [Saline Flush] 2.5 ml FLUSH ASDIRECTED PRN Saline Lock Insert [OM.PC] Stat 07/07/18 16:05 RT Aerosol Therapy [RC] ASDIRECTED 07/07/18 16:08 HCG QUALITATIVE,URINE [URCHEM] Stat 07/07/18 17:03 EKG Documentation Completion [RC] STAT 07/07/18 17:06 Sodium Chloride 0.9% [Normal Saline] 1,000 ml IV .Bolus - Assessment/Plan Last 24 Hours: My Active Orders 07/07/18 15:08 Cardiac Monitoring [RC] . DIRECTED EKG Documentation Completion [RC] STAT Oxygen Therapy [RC] ASDIRECTED Pulse Oximetry [RC] ASDIRECTED Chest 1V Frontal [CR] Stat Sodium Chloride 0.9% [Saline Flush] 10 ml FLUSH ASDIRECTED PRN Sodium Chloride 0.9% [Saline Flush] 2.5 ml FLUSH ASDIRECTED PRN Saline Lock Insert [OM.PC] Stat 07/07/18 16:05 RT Aerosol Therapy [RC] ASDIRECTED 07/07/18 16:08 HCG QUALITATIVE,URINE [URCHEM] Stat 07/07/18 17:03 EKG Documentation Completion [RC] STAT 07/07/18 17:06 Sodium Chloride 0.9% [Normal Saline] 1,000 ml IV .Bolus
[2018-07-07] MEDS ORDERED: cloNIDine 0.1 MG Tab PO ONE (15:19)
[2018-07-07] MEDS ORDERED: Nitroglycerin 0.4 MG Tab.SL SL ONE ×2 (15:46→16:05)
[2018-07-07] MEDS ORDERED: Albuterol/Ipratropium 3.0-0.5 MG/3 ML Neb Soln NEB ONE (16:04)
[2018-07-07 16:25] VITALS: BP 162/108
[2018-07-07] MEDS ORDERED: Nitroglycerin 2% Oint 1 GM UD Packet TOP ONE (16:26)
--- NOTE | 2018-07-08 12:34 | CR ---
EXAM DATE: 07/07/18 PATIENT'S AGE: 47 Patient: VIOLET NIELSEN Facility: [place], [place] Site . Site : 1970 Study: XRay Chest [id number] 4:11:57 PM Ordering Physician: Doctor Varela Final Report: Indication: SOB Technique: Chest 1 view Comparison: None Findings/Impression: Cardiovascular and mediastinum: Upper limits of normal cardiac size which could be related to the portable technique. An unfolded aorta. Lungs and pleural space: A small ill defined lateral left basilar opacity which could be related to mild atelectasis or scarring, however correlate clinically and followup to exclude a small infiltrate. No pleural effusions. Bones and soft tissues: No significant findings. Dictated by Natan Chou MD @ 07/07/2018 4:17:58 PM Dictated by: Natan Chou MD @ 07/07/2018 16:18:02 (Electronic Signature) Report Signed by Proxy. MANNIE
== END 2018-07-07 17:16 | disposition left against medical advice (07) ==
LOC: MW.ED 15:04
DX: I10 Essential (primary) hypertension (principal); J18.9 Pneumonia, unspecified organism; F19.10 Other psychoactive substance abuse, uncomplicated; R79.89 Other specified abnormal findings of blood chemistry
CPT/HCPCS: 36415; 71045; 80053; 80305; 81001; 81025; 82150; 83690; 84484; 85025; 85610; 93005; 94640; 96361; 96374; 99285; A9270; J3490; J7040; J7620-GY

== ENCOUNTER 2019-01-18 23:15 | Emergency (ER) | payer MEDICAID ==
--- NOTE | 2019-01-18 23:21 | EDM.PDOC ---
ED HPI GENERAL MEDICAL PROBLEM - General Stated Complaint: CODE BLUE Time Seen by Provider: 01/18/19 23:17 - History of Present Illness INITIAL COMMENTS - FREE TEXT/NARRATIVE: Patient is a 48 year old female who presents cardiopulmonary arrest pulseless nonbreathing paramedics initiated ACLS resuscitation I'm once approximately 25 minutes patient had 5 rounds of epi Narcan was intubated and remained pulseless nonbreathing on arrival here patient remained in PEA HEENT was atraumatic pupils are fixed and dilated breath sounds are equal with no cardiac activity pronounced at 2309 impression is cardiopulmonary arrest - Related Data Allergies Allergy/AdvReac Type Severity Reaction Status Date / Time No Known Allergies Allergy Verified 07/07/18 15:11 Home Meds: Home Meds cloNIDine [Catapres] 0.2 mg PO Q8H #20 tablet 05/15/17 [Rx] Past Medical History HEENT History: Reports: None Cardiovascular History: Reports: Hypertension Respiratory History: Reports: None Gastrointestinal History: Reports: None Genitourinary History: Reports: UTI, Recurrent Other Genitourinary History: HPV VEGETABLES COOK History: Reports: , Other (See Below) Other VEGETABLES COOK History: Multiple vaginal surgeries for vaginal cancer Musculoskeletal History: Reports: None Neurological History: Reports: Migraines, Seizure Psychiatric History: Reports: Anxiety Endocrine/Metabolic History: Reports: None Hematologic History: Reports: None Immunologic History: Reports: None Oncologic (Cancer) History: Reports: Other (See Below) Other Oncologic History: vaginal ca Dermatologic History: Reports: None - Infectious Disease History Infectious Disease History: Reports: Chicken Pox, Human Papilloma Virus (HPV) - Past Surgical History Head Surgeries/Procedures: Reports: None GI Surgical History: Reports: Other (See Below) Oncologic Surgical History: Reports: Other (See Below) Social & Family History - Family History Family Medical History: Noncontributory Cardiac: Reports: Hypertension, Other (See Below) Other Cardiac Family History: "cardiac disease" OBGYN: Reports: Neurological: Reports: Dementia Oncologic: Reports: Breast, Pancreatic, Skin Other Oncologic Family History: sister - Caffeine Use Caffeine Use: Reports: Soda ED ROS GENERAL - Review of Systems Review Of Systems: ROS reveals no pertinent complaints other than HPI. ED EXAM, GENERAL - Physical Exam Exam: See Below (See dictation) Departure - Departure Time of Disposition: 23:20 Disposition: 20 Clinical Impression: Cardiopulmonary arrest - Discharge Information
== END 2019-01-19 03:04 | disposition expired ==
LOC: MW.ED 23:15
DX: I46.9 Cardiac arrest, cause unspecified (principal); F41.9 Anxiety disorder, unspecified; Z79.899 Other long term (current) drug therapy
CPT/HCPCS: 92950; 99285